=== PATIENT | female | born 1960 | race Caucasian/White ===

== ENCOUNTER 2019-02-09 11:22 | Inpatient (IN) | payer BC ==
[2019-02-09] MEDS ORDERED: KETOROLAC 30 MG/ML 1 ML VIAL IVP STA (11:46)
[2019-02-09] MEDS ORDERED: SODIUM CHLORIDE 0.9% 1,000 ML IV STA (11:46)
[2019-02-09] MEDS ORDERED: ASPIRIN 81 MG PO STA (11:46)
--- NOTE | 2019-02-09 11:50 | ED ---
Chest Pain HPI - General Chief Complaint: Chest Pain Stated Complaint: chest pain Time Seen by Provider: 02/09/19 11:33 Source: patient, RN notes reviewed Mode of arrival: wheelchair Limitations: no limitations - History of Present Illness Initial Comments: This is a 58-year-old female with a history of asthma states she had the onset this morning at about 6 AM of upper abdominal right upper quadrant discomfort that later radiated to her left anterior chest he states it felt like labor pains 5/10 in severity she states she had nausea with with this this morning but none now. She states the pain does not get any worse with movement is deep breathing exertion. She has no prior history of heart disease or abdominal disorders that she is aware of. She is unsure of her family history. She denies any fevers chills or sweats no other symptoms at this time she states she's not able to get comfortable. No other modifying factors she has ALLERGIES to codeine no other medications that she is aware of. MD Complaint: chest pain, other - Related Data Home Medications Medication Instructions Recorded Confirmed Aspirin EC [Ecotrin Low Dose] 81 mg PO HS 02/09/19 02/09/19 Atorvastatin [Lipitor] 10 mg PO HS 02/09/19 02/09/19 Citalopram Hydrobromide [CeleXA] 20 mg PO HS 02/09/19 02/09/19 Ibuprofen [Motrin Ib] 400 mg PO Q6H PRN 02/09/19 02/09/19 Losartan Potassium [Cozaar] 25 mg PO HS 02/09/19 02/09/19 Pepto Chewablae 2 tab PO Q4H PRN 02/09/19 02/09/19 levETIRAcetam [Keppra] 500 mg PO Q12HR 02/09/19 02/09/19 Allergies Allergy/AdvReac Type Severity Reaction Status Date / Time codeine Allergy Hallucinati Verified 02/09/19 11:56 ons Review of Systems ROS Statement: Those systems with pertinent positive or pertinent negative responses have been documented in the HPI. ROS Other: All systems not noted in ROS Statement are negative. EKG Findings - EKG Results: EKG: interpreted by LUIS, sinus rhythm (Normal sinus rhythm of 54. Interval 190 QRS duration 84 QT since QTC 456/[address]-T wave changes.) Past Medical History Past Medical History: Asthma History of Any Multi-Drug Resistant Organisms: None Reported Past Surgical History: Joint Replacement, Orthopedic Surgery, Tonsillectomy Additional Past Surgical History / Comment(s): left knee. scar tissue removed in throat Past Psychological History: No Psychological Hx Reported Smoking Status: Never smoker Past Alcohol Use History: Daily Past Drug Use History: None Reported General Exam - General Exam Comments Initial Comments: This is a well-developed well-nourished awake alert oriented history female Limitations: no limitations General appearance: alert, anxious Head exam: Present: atraumatic, normocephalic, normal inspection Eye exam: Present: normal appearance, PERRL, EOMI. Absent: scleral icterus, conjunctival injection, periorbital swelling ENT exam: Present: normal exam, mucous membranes moist Neck exam: Present: normal inspection, full ROM, other (No stridor JVD or bruits). Absent: tenderness, meningismus, lymphadenopathy Respiratory exam: Present: normal lung sounds bilaterally, chest wall tenderness (Reproducible tenderness palpation of left costal sternal costochondral margin with no step-off or crepitation). Absent: respiratory distress, wheezes, rales, rhonchi, stridor Cardiovascular Exam: Present: regular rate, normal rhythm, normal heart sounds. Absent: systolic murmur, diastolic murmur, rubs, gallop, clicks GI/Abdominal exam: Present: soft, tenderness (Some right upper quadrant epigastric tenderness palpation no overt guarding rebound masses or bruits), normal bowel sounds. Absent: distended, guarding, rebound, rigid Extremities exam: Present: normal inspection, full ROM, normal capillary refill. Absent: tenderness, pedal edema, joint swelling, calf tenderness Back exam: Present: normal inspection Neurological exam: Present: alert, oriented X3, CN II-XII intact Psychiatric exam: Present: normal affect, normal mood Skin exam: Present: warm, dry, intact, normal color. Absent: rash Course Vital Signs 02/09/19 11:27 Temperature 98.4 F Pulse Rate 59 L Respiratory 18 Rate Blood Pressure 180/73 O2 Sat by Pulse 99 Oximetry - Reevaluation(s) Reevaluation #1: 02/09/19 15:17 The patient have intermittent episodes of crampy labor like pains of the midepigastrium and right upper quadrant area. 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 65 upon my examination. Chest Pain MDM - MDM I did review the imaging and report or is evidence of cholelithiasis as well as cholecystitis with thickened gallbladder wall and some pericolic fluid. Stones are mobile. X-rays unremarkable. I did discuss findings the patient and family members as well as with Dr. Jean. Patient be admitted place an IV antibiotics low fat diet for inpatient treatment. Disposition Clinical Impression: Atypical chest pain, Chest wall syndrome, Acute calculous cholecystitis Disposition: ADMITTED IP TO THIS HOSP Condition: Fair Referrals: Lisa Rivas DO [Primary Care Provider] - 1-2 days
[2019-02-09 12:18] LABS: Basophils % (A) 1 %; Eosinophils # (A) 0.2 k/uL (0-0.7); Eosinophils % (A) 3 %; HCT 40.8 % (34.0-46.0); HGB 14.4 gm/dL (11.4-16.0); Lymphocytes # (A) 1.3 k/uL (1.0-4.8); Lymphocytes % (A) 17 %; MCH 30.7 pg (25.0-35.0); MCHC 35.3 g/dL (31.0-37.0); MCV 86.8 fL (80.0-100.0); Mean Platelet Volume 7.2; Monocytes # (A) 0.3 k/uL (0-1.0); Monocytes % (A) 4 %; Neutrophils # (A) 5.7 k/uL (1.3-7.7); Neutrophils % (A) 75 %; Platelet Count 196 k/uL (150-450); WBC 7.6 k/uL (3.8-10.6)
[2019-02-09 12:25] LABS: ALT 62 U/L (9-52); AST 64 U/L (14-36); Albumin 4.5 g/dL (3.5-5.0); Alkaline Phosphatase 113 U/L (38-126); Amylase 46 U/L (30-110); Anion Gap 10 mmol/L; Blood Urea Nitrogen 17 mg/dL (7-17); Calcium 9.6 mg/dL (8.4-10.2); Carbon Dioxide 21 mmol/L (22-30); Chloride 107 mmol/L (98-107); Creatine Kinase 94 U/L (30-135); Glucose 134 mg/dL (74-99); Lipase 68 U/L (23-300); Magnesium 1.7 mg/dL (1.6-2.3); Sodium 138 mmol/L (137-145); Total Bilirubin 0.8 mg/dL (0.2-1.3); Total Protein 6.7 g/dL (6.3-8.2)
[2019-02-09 12:33] LABS: D-Dimer 0.56 mg/L FEU (<0.60); INR 0.9 (<1.2); Partial Thromboplastin Time 24.9 sec (22.0-30.0); Prothrombin Time 9.9 sec (9.0-12.0)
--- NOTE | 2019-02-09 12:38 | XR ---
EXAMINATION TYPE: XR chest 2V DATE OF EXAM: 02/09/2019 COMPARISON: NONE HISTORY: Shortness of breath TECHNIQUE: Frontal and lateral views of the chest are obtained. FINDINGS: Scattered senescent parenchymal changes noted. No evidence for infiltrate. No evidence for atelectasis. Heart size is stable. Mediastinal structures are stable and grossly unremarkable. No evidence for hilar prominence. Degenerative changes dorsal spine. IMPRESSION: 1. No evidence for acute pulmonary disease.
--- NOTE | 2019-02-09 14:13 | US ---
EXAMINATION TYPE: US gallbladder DATE OF EXAM: 02/09/2019 COMPARISON: NONE CLINICAL HISTORY: Pain. EXAM MEASUREMENTS: Liver Length: 15.3 cm Gallbladder Wall: 0.9 cm CBD: 0.3 cm Right Kidney: 10.7 x 3.5 x 4.7 cm Pancreas: mostly obscured by bowel gas, portions visualized wnl Liver: wnl Gallbladder: mobile stones, wall thickened with possible small amount of ff surrounding Evidence for sonographic Hoskins's sign: no CBD: wnl Right Kidney: wnl IMPRESSION: 1. Correlate for possible acute cholecystitis. 2. Hepatic steatosis.
[2019-02-09] MEDS ORDERED: KETOROLAC 30 MG/ML 1 ML VIAL IVP PRN (15:20)
[2019-02-09] MEDS ORDERED: ONDANSETRON 4 MG/2 ML VIAL IVP PRN (15:20)
[2019-02-09] MEDS ORDERED: NALOXONE 0.4 MG/ML 1 ML VIAL IV PRN (15:20)
[2019-02-09] MEDS ORDERED: cefTRIAXone IN SWFI 1,000 MG/10 ML SYRINGE IVP STA (15:24)
[2019-02-09] MEDS ORDERED: SODIUM CHLORIDE 0.9% 1,000 ML IV SCH (15:30)
[2019-02-09] MEDS ORDERED: PIPERACILLIN-TAZOBACTAM 3.375 GM in SODIUM CHLORIDE 0.9% 100 ML IVPB SCH (16:00)
[2019-02-09] MEDS: levETIRAcetam 500 MG TAB PO SCH (20:36)
[2019-02-09] MEDS ORDERED: LOSARTAN 25 MG TAB PO SCH (21:00)
[2019-02-09] MEDS ORDERED: ATORVASTATIN 10 MG TAB PO SCH (21:00)
[2019-02-09] MEDS ORDERED: CITALOPRAM HYDROBROMIDE 20 MG TAB PO SCH (21:00)
[2019-02-10] MEDS: PIPERACILLIN-TAZOBACTAM 3.375 GM in SODIUM CHLORIDE 0.9% 100 ML IVPB SCH ×2 (00:04→08:19)
[2019-02-10 08:06] LABS: Basophils # (A) 0.1 k/uL (0-0.2); Basophils % (A) 1 %; Eosinophils # (A) 0.2 k/uL (0-0.7); Eosinophils % (A) 4 %; HGB 12.8 gm/dL (11.4-16.0); Lymphocytes # (A) 1.7 k/uL (1.0-4.8); Lymphocytes % (A) 28 %; MCH 29.7 pg (25.0-35.0); MCHC 33.7 g/dL (31.0-37.0); MCV 88.3 fL (80.0-100.0); Monocytes # (A) 0.3 k/uL (0-1.0); Monocytes % (A) 4 %; Neutrophils # (A) 3.6 k/uL (1.3-7.7); Neutrophils % (A) 61 %; Platelet Count 178 k/uL (150-450); RBC 4.31 m/uL (3.80-5.40); RDW 14.3 % (11.5-15.5); WBC 5.9 k/uL (3.8-10.6)
[2019-02-10 08:11] LABS: ALT 56 U/L (9-52); AST 33 U/L (14-36); Albumin 3.8 g/dL (3.5-5.0); Alkaline Phosphatase 76 U/L (38-126); Anion Gap 6 mmol/L; Blood Urea Nitrogen 13 mg/dL (7-17); Calcium 8.8 mg/dL (8.4-10.2); Carbon Dioxide 27 mmol/L (22-30); Chloride 109 mmol/L (98-107); Glucose 108 mg/dL (74-99); Potassium 4.3 mmol/L (3.5-5.1); Sodium 142 mmol/L (137-145); Total Bilirubin 0.7 mg/dL (0.2-1.3); Total Protein 5.9 g/dL (6.3-8.2)
[2019-02-10 08:38] VITALS: BP 142/77; PULSE 62; RESP 18; TEMP 97.8
[2019-02-10] MEDS ORDERED: PANTOPRAZOLE 40 MG/10 ML VIAL IV SCH (09:00)
[2019-02-10] MEDS: levETIRAcetam 500 MG TAB PO SCH (09:03)
--- NOTE | 2019-02-10 09:06 | P.GSHP ---
History of Present Illness H&P Date: 02/09/19 Chief Complaint: Epigastric, chest pain This is a 58-year-old female who was worked up emergency room for chest pain. Patient was found have evidence of cholecystitis with thickened gallbladder wall and cholelithiasis. Patient was admitted to the hospital. She states her pain started to improve in the afternoon while in the emergency room. Past Medical History Past Medical History: Asthma, Hypertension Additional Past Medical History / Comment(s): patient takes lipitor and keppra transient global amneisa. History of Any Multi-Drug Resistant Organisms: None Reported Past Surgical History: Adenoidectomy, Hysterectomy, Orthopedic Surgery, Tonsillectomy Additional Past Surgical History / Comment(s): left knee. scar tissue removed in throat Past Anesthesia/Blood Transfusion Reactions: No Reported Reaction Past Psychological History: Depression Smoking Status: Never smoker Past Alcohol Use History: Daily Past Drug Use History: None Reported Medications and Allergies Home Medications Medication Instructions Recorded Confirmed Type Aspirin EC [Ecotrin Low Dose] 81 mg PO HS 02/09/19 02/09/19 History Atorvastatin [Lipitor] 10 mg PO HS 02/09/19 02/09/19 History Citalopram Hydrobromide [CeleXA] 20 mg PO HS 02/09/19 02/09/19 History Fluticasone/Salmeterol [Advair Hfa 02/09/19 History 115-21 Mcg Inhaler] Losartan Potassium [Cozaar] 25 mg PO HS 02/09/19 02/09/19 History Pepto Chewablae 2 tab PO Q4H PRN 02/09/19 02/09/19 History levETIRAcetam [Keppra] 500 mg PO Q12HR 02/09/19 02/09/19 History Allergies Allergy/AdvReac Type Severity Reaction Status Date / Time codeine Allergy Hallucinati Verified 02/09/19 11:56 ons Surgical - Exam Vital Signs Temp Pulse Resp BP Pulse Ox 98.4 F 59 L 18 180/73 99 02/09/19 11:27 02/09/19 11:27 02/09/19 11:27 02/09/19 11:27 02/09/19 11:27 - General well developed, well nourished, no distress - Eyes PERRL - ENT normal pinna - Neck no masses - Respiratory normal expansion - Cardiovascular Rhythm: regular - Abdomen Abdomen: soft, non tender Results - Labs 02/10/19 07:34 02/10/19 07:34 Abnormal Lab Results - Last 24 Hours (Table) 02/09/19 02/10/19 Range/Units 11:56 07:34 Chloride 109 H (98-107) mmol/L Carbon Dioxide 21 L (22-30) mmol/L Glucose 134 H 108 H (74-99) mg/dL AST 64 H (14-36) U/L ALT 62 H 56 H (9-52) U/L Total Protein 5.9 L (6.3-8.2) g/dL Diabetes panel 02/09/19 02/10/19 Range/Units 11:56 07:34 Sodium 138 142 (137-145) mmol/L Potassium 4.0 4.3 (3.5-5.1) mmol/L Chloride 107 109 H (98-107) mmol/L Carbon Dioxide 21 L 27 (22-30) mmol/L BUN 17 13 (7-17) mg/dL Creatinine 0.58 0.76 (0.52-1.04) mg/dL Glucose 134 H 108 H (74-99) mg/dL Calcium 9.6 8.8 (8.4-10.2) mg/dL AST 64 H 33 (14-36) U/L ALT 62 H 56 H (9-52) U/L Alkaline Phosphatase 113 76 (38-126) U/L Total Protein 6.7 5.9 L (6.3-8.2) g/dL Albumin 4.5 3.8 (3.5-5.0) g/dL Calcium panel 02/09/19 02/10/19 Range/Units 11:56 07:34 Calcium 9.6 8.8 (8.4-10.2) mg/dL Albumin 4.5 3.8 (3.5-5.0) g/dL Pituitary panel 02/09/19 02/10/19 Range/Units 11:56 07:34 Sodium 138 142 (137-145) mmol/L Potassium 4.0 4.3 (3.5-5.1) mmol/L Chloride 107 109 H (98-107) mmol/L Carbon Dioxide 21 L 27 (22-30) mmol/L BUN 17 13 (7-17) mg/dL Creatinine 0.58 0.76 (0.52-1.04) mg/dL Glucose 134 H 108 H (74-99) mg/dL Calcium 9.6 8.8 (8.4-10.2) mg/dL Adrenal panel 02/09/19 02/10/19 Range/Units 11:56 07:34 Sodium 138 142 (137-145) mmol/L Potassium 4.0 4.3 (3.5-5.1) mmol/L Chloride 107 109 H (98-107) mmol/L Carbon Dioxide 21 L 27 (22-30) mmol/L BUN 17 13 (7-17) mg/dL Creatinine 0.58 0.76 (0.52-1.04) mg/dL Glucose 134 H 108 H (74-99) mg/dL Calcium 9.6 8.8 (8.4-10.2) mg/dL Total Bilirubin 0.8 0.7 (0.2-1.3) mg/dL AST 64 H 33 (14-36) U/L ALT 62 H 56 H (9-52) U/L Alkaline Phosphatase 113 76 (38-126) U/L Total Protein 6.7 5.9 L (6.3-8.2) g/dL Albumin 4.5 3.8 (3.5-5.0) g/dL - Imaging US - abdomen: report reviewed (Gallstones with very thickened gallbladder wall 9 mm. Small amount of pericholecystic fluid) Assessment and Plan Assessment: Acute, chronic cholecystitis Cholelithiasis Patient will need laparoscopic cholecystectomy
--- NOTE | 2019-02-10 09:07 | P.DS ---
Providers Date of admission: 02/09/19 15:35 Expected date of discharge: 02/10/19 Attending physician: Duran Hassan Primary care physician: Lisa Rivas Hospital Course: This a 58-year-old female is minimal hospital complaints of epigastric and chest pain. Patient worked up found have evidence of cholecystitis, cholelithiasis with thickened gallbladder wall. Patient states her pain improved while in the hospital. Patient is requesting be discharged and have her gallbladder performed as an outpatient. On the day of discharge her vital signs are stable. Her abdomen was soft. She had no significant tenderness. The patient was discharged home. She did not wish to schedule her laparoscopic ostectomy this time. She'll be seen in the office prior to scheduling her procedure. Patient Condition at Discharge: Fair Plan - Discharge Summary Discharge Rx Participant: No New Discharge Prescriptions: No Action Aspirin EC [Ecotrin Low Dose] 81 mg PO HS levETIRAcetam [Keppra] 500 mg PO Q12HR Losartan Potassium [Cozaar] 25 mg PO HS Citalopram Hydrobromide [CeleXA] 20 mg PO HS Atorvastatin [Lipitor] 10 mg PO HS Pepto Chewablae 2 tab PO Q4H PRN PRN Reason: Gi Upset Fluticasone/Salmeterol [Advair Hfa 115-21 Mcg Inhaler] Discharge Medication List Aspirin EC [Ecotrin Low Dose] 81 mg PO HS 02/09/19 [History] Atorvastatin [Lipitor] 10 mg PO HS 02/09/19 [History] Citalopram Hydrobromide [CeleXA] 20 mg PO HS 02/09/19 [History] Fluticasone/Salmeterol [Advair Hfa 115-21 Mcg Inhaler] 02/09/19 [History] Losartan Potassium [Cozaar] 25 mg PO HS 02/09/19 [History] Pepto Chewablae 2 tab PO Q4H PRN 02/09/19 [History] levETIRAcetam [Keppra] 500 mg PO Q12HR 02/09/19 [History] Follow up Appointment(s)/Referral(s): Lisa Rivas, [Primary Care Provider] - 1-2 days Duran Hassan MD [STAFF PHYSICIAN] - 02/13/19 2:00 pm Patient Instructions/Handouts: Cholecystitis (ED), Biliary Colic (ED), Low Fat Diet (GEN) Discharge Disposition: HOME SELF-CARE
== END 2019-02-10 10:35 | disposition home or self-care (01) | DRG 446 ==
LOC: EC 11:22 → 6PED 15:35
PROVIDERS: ADMIT Surgery; ATTEND Surgery
DX: K80.12 Calculus of gallbladder with acute and chronic cholecystitis without obstruction (principal); F32.9 Major depressive disorder, single episode, unspecified; I10 Essential (primary) hypertension; J45.909 Unspecified asthma, uncomplicated; Z90.710 Acquired absence of both cervix and uterus; Z79.899 Other long term (current) drug therapy; Z79.82 Long term (current) use of aspirin; Z88.5 Allergy status to narcotic agent; Z96.60 Presence of unspecified orthopedic joint implant
CPT/HCPCS: 36415; 71046; 76705; 80053; 82150; 82550; 83690; 83735; 83880; 84484; 85025; 85379; 85610; 85730; 93005; 96374; 96375; 99285

== ENCOUNTER 2019-05-09 10:08 | Day surgery (SDC) | payer BC ==
[2019-05-04 10:51] VITALS: BMI 34.2
[~2019-05-09 10:08] MED LIST: DEXAMETHASONE SOD PHOSPHATE 10 MG/ML 1 ML VIAL IV ONE; HEPARIN SODIUM,PORCINE 5,000 UNIT/ML 1 ML VIAL SQ ONE; HYDROmorphone 0.5 MG/0.5 ML SYRINGE IVP PRN; KETOROLAC 30 MG/ML 1 ML VIAL IVP SCH; LACTATED RINGERS 1,000 ML IV SCH; LIDOCAINE 1% 20 ML VIAL (10MG/ML) FOR IV START INTRADERMA PRN; SCOPOLAMINE 1.5MG/72HR PATCH TRANSDERM ONE
[2019-05-09 10:29] VITALS: TEMP 97.5
[2019-05-09] MEDS: ONDANSETRON 4 MG/2 ML VIAL IVP PRN ×2 (10:42→14:38)
[2019-05-09] MEDS ORDERED: NEOSTIGMINE 1 MG/ML 10 ML VIAL ONE (11:15)
[2019-05-09] MEDS ORDERED: SUCCINYLCHOLINE CHLORIDE 100 MG/5 ML SYR IV ONE (11:15)
[2019-05-09] MEDS ORDERED: LIDOCAINE 1% INJ 10MG/ML (20 ML MDV) ONE (11:15)
[2019-05-09] MEDS ORDERED: HYDROmorphone (PF) 1 MG/ML ONE (11:15)
[2019-05-09] MEDS ORDERED: MIDAZOLAM 2 MG/2 ML VIAL ONE (11:15)
[2019-05-09] MEDS ORDERED: fentaNYL (PF) 50 MCG/ML 2 ML AMP ONE (11:15)
[2019-05-09] MEDS ORDERED: PROPOFOL 10 MG/ML 20 ML VIAL IV ONE (11:15)
[2019-05-09] MEDS ORDERED: GLYCOPYRROLATE 0.2 MG/ML 2 ML VIAL ONE (11:15)
[2019-05-09] MEDS ORDERED: ROCURONIUM BROMIDE 10 MG/ML 10 ML VIAL IV ONE (11:15)
[2019-05-09] MEDS ORDERED: BUPIVACAINE (PF) 0.5% 30 ML VIAL SQ ONE (11:20)
[2019-05-09] MEDS ORDERED: NALOXONE 0.4 MG/ML 1 ML VIAL IV PRN (12:35)
[2019-05-09] MEDS ORDERED: Acetaminophen-Codeine 300-30mg TAB PO PRN (12:35)
--- NOTE | 2019-05-09 12:35 | P.OP ---
Date of Procedure: 05/09/19 Procedure(s) Performed: PREOPERATIVE DIAGNOSIS: Chronic cholecystitis POSTOPERATIVE DIAGNOSIS: Same PROCEDURE: Laparoscopic cholecystectomy SURGEON: Haley EBL: Minimal see anesthesia record ANESTHESIA: Gen. COMPLICATIONS: None OPERATIVE PROCEDURE: The patient was brought and placed on the operating room table in the supine position. The patient was placed under general anesthesia at that time. The abdomen was prepped and draped in the usual sterile fashion. A small vertical infraumbilical incision was made. The fascia was grasped with the Mark forceps. The fascia was retracted anteriorly. The Veress needle was advanced into the umbilical incision site. I was not confident that we reached the peritoneum. The patient had a very thick-appearing abdominal wall at that site. I aborted the Veress approach. A 5 mm incision was then made in the right upper quadrant. Entrance into the abdominal cavity took place using an optical 5 mm trocar without difficulty. Full insufflation took place up to 15 mmHg. An additional 5 mm trocar was placed in the right upper quadrant under direct visualization. A 5 mm trocar was also placed at the initial umbilical incision site. A 12 mm trocar was advanced into the epigastric incision site. The gallbladder was retracted superiorly and laterally. The peritoneum overlying the infundibulum was bluntly dissected. The patient's cystic duct was visualized. The junction between the cystic duct common and hepatic duct was identified. The cystic duct was then divided after placement of 3 12 mm clips on the patient's side and one on the specimen side. The cystic artery was identified and clipped as well. A small vessel was seen along the gallbladder fossa and clipped as well. The gallbladder was then removed from the liver bed using electrocautery. The gallbladder was then removed from the epigastric trocar site with an Endo Catch bag. The gallbladder fossa was irrigated with saline. There was no evidence of any bleeding or biliary drainage seen. The fascia at the 12 millimeter site was closed using a JaspalLeydiEriberto 0 Vicryl s titch. The trochars were then removed. The skin at all 4 sites was closed using a 4-0 Monocryl stitch. Skin glue was utilized on the incision sites. At the end of this procedure the sponge and needle counts were correct. DISPOSITION: Stable to the recovery room
[2019-05-09] MEDS ORDERED: LACTATED RINGERS 1,000 ML IV ONE (13:03)
[2019-05-09 13:22] VITALS: RESP 16
[2019-05-09 14:37] VITALS: BP 178/94; PULSE 45
== END 2019-05-09 15:02 | disposition home or self-care (01) ==
LOC: OR 10:08
PROVIDERS: ATTEND Surgery
DX: K80.64 Calculus of gallbladder and bile duct with chronic cholecystitis without obstruction (principal); J45.909 Unspecified asthma, uncomplicated; Z88.5 Allergy status to narcotic agent; Z79.899 Other long term (current) drug therapy; Z96.652 Presence of left artificial knee joint
CPT/HCPCS: 88304; 47562; J2250; J1644; J1100; J2710; J0690; J2405; J2001; J3010; J1170; J0330; J2704

== ENCOUNTER → 2023-08-02 | Outpatient (CLI) | payer BC ==
--- NOTE | 2023-08-02 12:22 | CT ---
EXAMINATION TYPE: CT left knee - [facility] Protocol DATE OF EXAM: 08/02/2023 COMPARISON: None HISTORY: [facility] protocol CT DLP: 534.50 mGycm TECHNIQUE: Noncontrast Axial, sagittal and coronal images are obtained. FINDINGS: There is moderate air arthritic change involving the left knee most marked involving the medial jimmy rtment joint space. Marginal spurring noted. No erosive changes. Small suprapatellar bursal fluid col lection. Mild hypertrophic arthropathy of the hips. No acute fracture. No dislocation. Ankle mortise is symmetric. Osseous structures intact. IMPRESSION: 1. Moderate to severe osteoarthritis of the left knee.
== END | disposition home or self-care (01) ==
LOC: RADCTMAIN 11:11
PROVIDERS: ATTEND Orthopaedic Surgery
DX: M17.12 Unilateral primary osteoarthritis, left knee (principal)